=== PATIENT | female | born 1995 | race Asian ===

== ENCOUNTER 2023-11-25 08:29 | Emergency (ER) | payer SELFPAY ==
[~2023-11-25] VITALS: Ht 160 cm; Wt 57.0 kg
[2023-11-25 08:33] VITALS: BP 134/9; PULSE 103; RESP 18; TEMP 98.9; O2SAT 100
[2023-11-25] MEDS ORDERED: ONDANSETRON 4MG ODT PO NR (08:41)
== END 2023-11-25 09:11 | disposition left against medical advice (07) ==
LOC: ER 08:29
DX: R11.0 Nausea (principal); Z88.2 Allergy status to sulfonamides
CPT/HCPCS: 99283